=== PATIENT | female | born 1975 | race Caucasian/White ===

== ENCOUNTER 2017-02-06 06:41 | Day surgery (SDC) | payer BC ==
[2017-02-02 12:49] VITALS: BMI 20.3
[2017-02-06] MEDS ORDERED: PROPOFOL 20 ML ONE ×5 (07:19→08:10)
[2017-02-06] MEDS ORDERED: SUCCINYLCHOLINE CHLORIDE 200 MG/10 ML VIAL ONE (07:19)
[2017-02-06] MEDS ORDERED: COCAINE HCL 4% TOPICAL SOLUTION 4 ML BOTTLE TP ONE (07:25)
[2017-02-06] MEDS ORDERED: THROMBIN (BOVINE) 5,000 UNIT VIAL TP ONE (07:25)
[2017-02-06] MEDS ORDERED: LIDOCAINE 1%-EPI 1:100,000 30 ML MDV IJ ONE (07:25)
[2017-02-06] MEDS ORDERED: POVIDONE-IODINE 5% OPHTHALMIC PREP 30 ML SOLUTION ONE (07:25)
[2017-02-06] MEDS ORDERED: BACITRACIN 3.5 GM OPTHALMIC OINT TUBE ONE (07:25)
[2017-02-06] MEDS ORDERED: GUM MASTIC/STORAX/MSAL/ALCOHOL 1 DRP DROPSBTL MC ONE (07:25)
[2017-02-06] MEDS ORDERED: OXYMETAZOLINE 0.05% NASAL SOLUTION 15 ML BOTTLE NS ONE (07:25)
[2017-02-06] MEDS ORDERED: BUPIVACAINE HCL/PF 0.5% (5MG/ML) 10 ML VIAL ONE (07:25)
[2017-02-06] MEDS ORDERED: LIDOCAINE HCL 2% 100 MG/5 ML DISP.SYRIN ONE (07:59)
[2017-02-06] MEDS ORDERED: TETRACAINE 0.5% OPHTH SOLN 2 ML BOTTLE ONE (08:00)
[2017-02-06] MEDS ORDERED: ceFAZolin SODIUM 1 GM VIAL ONE (08:01)
[2017-02-06] MEDS ORDERED: ONDANSETRON 4 MG/2 ML VIAL ONE (09:02)
[2017-02-06] MEDS ORDERED: ACETAMINOPHEN 500 MG TABLET (FP) PO PRN (09:29)
[2017-02-06] MEDS ORDERED: LACTATED RINGERS SOLUTION 1,000 ML IV SCH (09:30)
[2017-02-06] MEDS ORDERED: ONDANSETRON 4 MG/2 ML VIAL IVPUSH PRN (09:52)
[2017-02-06] MEDS ORDERED: oxyCODONE HCL 5 MG TABLET PO PRN (09:53)
[2017-02-06] MEDS ORDERED: oxyCODONE HCL 5 MG TABLET ONE (10:55)
[2017-02-06 11:23] VITALS: TEMP 98.8
--- NOTE | 2017-02-06 12:13 | OP ---
DATE OF OPERATION: 02/06/2017 PREOPERATIVE DIAGNOSIS: Nasolacrimal obstruction with chronic dacryocystitis, left. POSTOPERATIVE DIAGNOSIS: Nasolacrimal obstruction with chronic dacryocystitis, left. PROCEDURE: 1. Dacryocystorhinostomy, left. 2. Partial ethmoidectomy. 3. Partial middle turbinectomy. 4. Silicone intubation, left lacrimal system. 5. Lacrimal sac biopsy. 6. Endoscopy. SURGEON: Sariah Garibay MD ANESTHESIA: Local with sedation. COMPLICATONS: None. ESTIMATED BLOOD LOSS: 10-20 mL. OPERATION REPORT: Patient was brought to the operating room, placed on the operating room table. Vital signs monitored by Anesthesia. Tetracaine was placed in both eyes. A tear trough incision was marked on the patients tear trough, and the medial canthus tendon curvilinear inferolaterally. Patient was prepped and draped in the usual sterile fashion. After a time-out was performed, a 50/50 mixture of 2% Xylocaine with 1:100,000 epinephrine and 0.5% Marcaine was injected subcutaneously in the area of the tear trough, anterior lacrimal crest, lateral wall of the nose, and dorsal nasal artery. Massage was applied for hemostasis. After prepping and draping, the right eye was taped closed with Steri-Strips. Left eye was closed manually. Incision was made in the skin and subcutaneous tissue, and this was carried down with gentle spreading with a Fisher scissors down to the anterior lacrimal crest with sharp and blunt dissections. Cautery was used as needed with Brooke needle. Periosteum was incised and reflected laterally as in the inferior portion, and the anterior limb of the medial canthal tendon was incised, and the wound was kept to a minimal size. Tissues were reflected laterally exposing lacrimal sac fossa. This was very thick prominent maxillary bone posteriorly placed at the junction between the lacrimal bone maxillary bone. Lacrimal bone was identified and penetrated with a hemostat. Upbiting Kerrison rongeurs were then used to create an osteotomy extending to the anterior lacrimal crest to the posterior lacrimal crest, medial canthal tendon down to the nasolacrimal duct. The upper lateral punctate was dilated. Cottonoid with thrombin were used for packing throughout the case, and the middle turbinate was injected with 2% Xylocaine with 1:100,000 epinephrine as partial ethmoidectomy had to be performed en route with the osteotomy due to ethmoidal air cells. These were extubated with pituitary forceps, and a partial middle turbinectomy was performed, as well, in order to create a nice opening into the middle meatus without obstruction from the turbinate. The upper and lower puncta were dilated, intubated with blunt probes. The sac was incised on its medial surface with a 12 blade. Anterior and posterior lacrimal sac flaps were created. Several lacrimal sac biopsies were sent, although no tumors or masses of any kind were identified. So, the nasolacrimal duct was closed on visualization, and were sent for biopsy, rule out sarcoid. The anterior lacrimal sac was secured with a double-arm 4-0 chromic suture. After Cottonoids were removed, the system was intubated with Infante probes, which were retrieved with Infante hooks from the left external naris, and the silicone was tested and seemed to move freely through the system. The anterior lacrimal sac flap was secured to the anterior nasal mucosal flap with left intact with mattress 4-0 chromic suture, and this was sutured to the periosteum just anterior to the osteotomy to prevent it from falling posteriorly. Additional single-arm 4-0 chromic suture was placed superiorly to close the internal fistula completely obliterating any views of the silicone stents. Antibiotic irrigation was used throughout the case, and after antibiotic irrigation, the subcuticular tissue was closed with two interrupted 6-0 chromic with plastic technique, and the skin itself was closed with running 6-0 plain suture with plastic technique. Endoscope was introduced into the nose, and good positioning of the silicone stent was observed with no impingement on the internal ostium from the turbinate or the septum. Suction was performed. Afrin was sprayed in the nose. Bacitracin ointment was placed on the sutures, and the patient was taken to the recovery room in stable condition. SARIAH GARIBAY M.D. [id number]
[2017-02-06 13:46] VITALS: BP 116/66; PULSE 62
--- NOTE | 2017-02-07 12:03 | PATH ---
Surgical Pathology Report Patient Name: PARTH SCHWARTZ [facility]. Rec. #: [id number] /Age/Gender: 1975 (Age: 41) / F Account: [id number] Location: [facility] AMBULATORY Taken: 02/06/2017 Received: 02/06/2017 Reported: 02/07/2017 Physicians: Amari Denny Specimen(s) Received LEFT LACRIMAL SAC BX Clinical History Blocked left tear duct Final Diagnosis LEFT LACRIMAL SAC, BIOPSY: BENIGN FIBROUS TISSUE WITH CHRONIC INFLAMMATION, AND ADMIXED FRAGMENTS OF BONE. SCANT BENIGN EPITHELIUM PRESENT. Electronically Signed Kevan Kincaid M.D. Gross Description Received in formalin labeled "lacrimal sac biopsy," are 5 rosenthal possible bone fragments ranging from 0.1-0.4 cm in greatest dimension. The specimens are submitted in toto in one cassette, following decalcification. /02/06/2017 saudi/02/06/2017
== END 2017-02-06 11:40 | disposition home or self-care (01) ==
LOC: FASU 06:41
PROVIDERS: ATTEND Ophthalmology
PROC: 09BV0ZZ Excision of Left Ethmoid Sinus, Open Approach (ICD-10-PCS; 2017-02-06)
PROC: 08B Eye, Excision (ICD-10-PCS; 2017-02-06)
PROC: 081Y0Z3 Bypass Left Lacrimal Duct to Nasal Cavity, Open Approach (ICD-10-PCS; principal; 2017-02-06 08:15)
DX: H04.321 Acute dacryocystitis of right lacrimal passage (principal); H04.512 Dacryolith of left lacrimal passage
CPT/HCPCS: 84703; 88304-TC; 94760

== ENCOUNTER 2017-09-11 06:29 | Day surgery (SDC) | payer BC ==
[2017-09-10 10:40] VITALS: BMI 20.3
[2017-09-11] MEDS ORDERED: BACITRACIN 3.5 GM OPTHALMIC OINT TUBE ONE (07:08)
[2017-09-11] MEDS ORDERED: OXYMETAZOLINE 0.05% NASAL SOLUTION 15 ML BOTTLE NS ONE (07:08)
[2017-09-11] MEDS ORDERED: BUPIVACAINE HCL/PF 0.5% (5MG/ML) 10 ML VIAL ONE (07:08)
[2017-09-11] MEDS ORDERED: TETRACAINE 0.5% OPHTH SOLN 2 ML BOTTLE ONE (07:08)
[2017-09-11] MEDS ORDERED: LIDOCAINE 1%/EPI 1:100000 (20 ML MULTI DOSE VIAL) ONE (07:08)
[2017-09-11] MEDS ORDERED: PROPOFOL 20 ML ONE ×5 (07:36→08:05)
[2017-09-11] MEDS ORDERED: MIDAZOLAM HCL 2 MG/2 ML SINGLE DOSE VIAL ONE (07:36)
[2017-09-11] MEDS ORDERED: SUCCINYLCHOLINE CHLORIDE 200 MG/10 ML VIAL ONE (07:36)
[2017-09-11] MEDS ORDERED: THROMBIN (BOVINE) 5,000 UNIT VIAL TP ONE (07:39)
[2017-09-11] MEDS ORDERED: POVIDONE-IODINE 5% OPHTHALMIC PREP 30 ML SOLUTION ONE (07:39)
[2017-09-11] MEDS ORDERED: DEXAMETHASONE SOD PHOSPHATE 4 MG/1 ML VIAL ONE (08:05)
[2017-09-11] MEDS ORDERED: ONDANSETRON 4 MG/2 ML VIAL ONE ×2 (08:05→09:15)
[2017-09-11] MEDS ORDERED: ACETAMINOPHEN 500 MG TABLET (FP) PO PRN (09:01)
[2017-09-11] MEDS ORDERED: PROMETHAZINE HCL 25 MG/1 ML VIAL IVPUSH PRN (09:09)
[2017-09-11] MEDS ORDERED: ONDANSETRON 4 MG/2 ML VIAL IVPUSH PRN (09:09)
[2017-09-11] MEDS ORDERED: oxyCODONE HCL 5 MG TABLET PO PRN ×2 (09:09)
[2017-09-11] MEDS ORDERED: LACTATED RINGERS SOLUTION 1,000 ML IV SCH (09:15)
[2017-09-11] MEDS ORDERED: ACETAMINOPHEN 500 MG TABLET (FP) ONE (10:04)
[2017-09-11 10:10] VITALS: TEMP 98.2
[2017-09-11] MEDS ORDERED: oxyCODONE HCL 5 MG TABLET ONE (10:30)
[2017-09-11 11:20] VITALS: BP 115/73; PULSE 66
--- NOTE | 2017-09-11 15:19 | OP ---
DATE OF OPERATION: 09/11/2017 PREOPERATIVE DIAGNOSIS: Nasolacrimal obstruction, right, status post dacryocystitis with abscess. POSTOPERATIVE DIAGNOSIS: Nasolacrimal obstruction, right, status post dacryocystitis with abscess, including dacryolithiasis, right. SURGEON: Amari Denny MD ANESTHESIA: General. COMPLICATIONS: None. ESTIMATED BLOOD LOSS: 5-10 mL DESCRIPTION OF PROCEDURE: Patient was brought to the operating room, placed on the operating room table. Vital signs monitored by Anesthesia. Tetracaine was placed in both eyes. Tear trough incision was marked in the right tear trough, and the patient was placed under general anesthesia and intubated. Timeout was performed. Following which a 50:50 mixture of 0.5% Marcaine and 2% Xylocaine and 1:100,000 epinephrine was then injected in the area of the tear trough subcutaneously down to the lateral wall of the nose, the anterior lacrimal crest, dorsal nasal artery, and infraorbital artery to minimize bleeding during the case. In addition, under direct visualization, the middle meatus was injected in the middle turbinate and the septum, and the right nostril was packed with cottonoids moistened with Afrin. Patient was prepped and draped in usual sterile fashion. Timeout had been performed. The incision was then made in the tear trough on the right side, and there was some scar tissue encountered immediately due to the fact the patient had a prior abscess there. This was gently spread apart with a Fisher scissor, and using blunt spreading, this was carried down to the anterior lacrimal crest. The anterior limb of the medial canthal tendon was identified and slightly incised to allow for dissection. Periosteum was then incised, and the periosteum was reflected laterally away from the lacrimal sac fossa, exposing the maxillary bone and the lacrimal sac bone posteriorly to the lacrimal crest, extending from the medial canthal tendon to the nasolacrimal duct with reasonable hemostasis. The lacrimal bone was penetrated with a hemostat and upbiting Kerrison rongeurs were then used to create an osteotomy extended from the posterior to the anterior lacrimal crest, extending from the medial canthal tendon to the nasolacrimal duct. The upper and lower puncta were dilated and intubated with probes. The probes were passed, tenting the medial wall of the sac medially. The ethmoidal mucosa was opened vertically and creating a large anterior nasal mucosal flap. Posterior nasal mucosa was excised, as was partial ethmoidectomy performed with Bri forceps and a partial middle turbinectomy, removing the head of the turbinate to clear the osteotomy site easily for postoperative followup. The packing was visualized in the nose. The nasal wall of the sac was tented medially and incised with a 12 blade, creating a large generous lacrimal sac flap. The lacrimal sac flap posteriorly with its mucosa was biopsied. Relaxing incisions were made in the anterior and posterior lacrimal sac flaps, and then, a mass was seen in the lateral wall of the sac. With gentle spreading and removal of mucosa, one could identify this as a large dacryolith, and the dacryolith was removed in pieces, but was completely removed until there was no further stone within the sac and the sac was irrigated, as was the entire wound throughout the operation with antibiotic solution. The system was then intubated with Infante probes easily. The internal common canaliculus was opened. Once the dacryolith was removed and the probe was removed with a Infante hook through the right external naris, intubating the system, the silicone moved quite freely through the system. The stents were removed from the probes, and the stent was tied with locking knots in the right external naris. The anterior lacrimal sac flap was now secured to the anterior nasal mucosal flap with a mattress, then interrupted 4-0 chromic suture, also sutured to the periosteum anterior to prevent the mucosal anastomosis from pulling posteriorly. The muscle layer was closed after antibiotic irrigation with interrupted 5-0 chromics, and the skin was closed with a running and one interrupted 6-0 plain suture in plastic technique. The stent was secured to the right external naris with a single 6-0 Prolene with minimal tension on the loop in the right medial canthus. The endoscope was introduced. Suction was performed demonstrating good hemostasis and absolutely no impingement on the internal ostium with good positioning of the silicone stents. Afrin was sprayed in the nose. Bacitracin ointment was placed on the sutures, and the patient was awakened from anesthesia and taken to the recovery room in stable condition. Mary [id number]
--- NOTE | 2017-09-13 11:03 | PATH ---
Surgical Pathology Report Patient Name: PARTH SCHWARTZ [facility]. Rec. #: [id number] /Age/Gender: 1975 (Age: 41) / F Account: [id number] Location: [facility] AMBULATORY Taken: 09/12/2017 Received: 09/12/2017 Reported: 09/13/2017 Physicians: Amari Denny Specimen(s) Received A: LACRIMAL SAC BIOPSY RIGHT B: STONES BIOPSY RIGHT C: BONE BIOPSY RIGHT D: NASAL MUCOSA RIGHT Clinical History Preoperative diagnosis: Blocked tear duct Postoperative diagnosis: Same Final Diagnosis A. RIGHT LACRIMAL SAC, BIOPSY: FIBROUS TISSUE WITH CHRONIC INVASION AND ADMIXED BLOOD VESSELS. NO INTACT TUMOR IDENTIFIED. B. DESIGNATED STONES, BIOPSY: KERATINOUS DEBRIS. C. BONE, RIGHT, BIOPSY: BONE WITH REACTIVE CHANGES, AND RESPIRATORY MUCOSA WITH CHRONIC INFLAMMATION. D. NASAL MUCOSA, RIGHT, BIOPSY: RESPIRATORY MUCOSA WITH CHRONIC INFLAMMATION. BONE WITH MILD REACTIVE CHANGES PRESENT. Comment: See also [id number]. Electronically Signed Kevan Kincaid M.D. Gross Description A. Received in formalin labeled "lacrimal sac biopsy right," is a 0.2 cm greatest dimension rosenthal soft tissue fragment. The specimen is submitted in toto in one cassette. B. Received in formalin labeled "stones biopsy," is a 0.2 x 0.2 x 0.1 cm aggregate of rosenthal soft tissue fragments. The formalin is filtered and the specimen is entirely submitted in one cassette. C. Received in formalin labeled "bone biopsy right," is a 0.5 x 0.5 x 0.2 cm aggregate of rosenthal bone fragments. The specimen is submitted in toto in one cassette, following decalcification. D. Received in formalin labeled "nasal mucosa right," is a 0.3 x 0.3 x 0.1 cm aggregate of rosenthal soft tissue fragments. The specimen is submitted in toto in one cassette. 09/12/201709/12/2017
== END 2017-09-11 11:15 | disposition home or self-care (01) ==
LOC: FASU 06:29
PROVIDERS: ATTEND Ophthalmology
PROC: 081X0Z3 Bypass Right Lacrimal Duct to Nasal Cavity, Open Approach (ICD-10-PCS; principal; 2017-09-11 07:52)
DX: H04.321 Acute dacryocystitis of right lacrimal passage (principal); H04.511 Dacryolith of right lacrimal passage; J32.8 Other chronic sinusitis
CPT/HCPCS: 84703; 88304-TC; 88311-TC; 94760